=== PATIENT | female | born 1935 | race Caucasian/White ===

== ENCOUNTER 2017-12-09 01:56 | Observation (INO) | payer OTHER ==
--- NOTE | 2017-12-09 02:10 | EDPHY ---
H & P Time Seen by Provider: 12/09/17 02:03 HPI/ROS: Chief Complaint: Rectal bleeding HPI: 82-year-old woman whose had 2 episodes of rectal bleeding in the last 8 hr. Patient states at approximately 6 o'clock yesterday evening she had a bowel movement with some normal some loose stool and some bright red blood. Patient also has a pessary removed to make sure that that was not the source of bleeding inside it was clean. Patient states she with the bathroom urinated several more times without any blood. This morning she got up to go the bathroom and had another bowel movement with formed stool and some bright red blood. Denies any lightheadedness or weakness. Does have a history of upper GI bleed in the past and takes omeprazole. She has been taking her medications. No abdominal pain. No nausea vomiting or diarrhea. She has a history of glaucoma and poor eyesight. Does not believe that she has been having melena recently. Is currently without complaint. ROS: 10 point Review of Systems is negative except as noted in the HPI. PMH: Glaucoma, GERD Social History: No smoking, no alcohol, no recreational drug use Family History: non-contributory Physical Exam: Gen: Awake, Alert, No Distress HEENT: Nose: no rhinorrhea Eyes: PERRLA, EOMI Mouth: Moist mucosa Neck: Supple, no JVD Chest: nontender, lungs clear to auscultation Heart: S1, S2 normal, no murmur Abd: Soft, non-tender, no guarding Back: no CVA tenderness, no midline tenderness Ext: no edema, non-tender Skin: no rash Neuro: CN II-XII intact, Sensation grossly intact, Strength 5/5 in bilateral upper and lower extremities - Personal History Tetanus Vaccine Date: within 5 years - Medical/Surgical History Hx Asthma: No Hx Chronic Respiratory Disease: No Hx Diabetes: No Hx Cardiac Disease: No Hx Renal Disease: No Hx Cirrhosis: No Hx Alcoholism: No Hx HIV/AIDS: No Hx Splenectomy or Spleen Trauma: No 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 - Social History Smoking Status: Former smoker Constitutional: Initial Vital Signs Temperature (C) 36.8 C 12/09/17 01:58 Heart Rate 96 12/09/17 01:58 Respiratory Rate 18 12/09/17 01:58 Blood Pressure 111/99 H 12/09/17 01:58 O2 Sat (%) 96 12/09/17 01:58 O2 Delivery Mode Room Air Allergies/Adverse Reactions: alcohol [wine] Allergy (Mild, Verified 12/09/17 02:08) cocoa [chocolate] Allergy (Mild, Verified 12/09/17 02:08) lisinopril Allergy (Mild, Verified 12/09/17 02:08) tomato Allergy (Mild, Verified 12/09/17 02:08) Home Medications: Medication Instructions Recorded Aspirin [Aspirin 81mg (*)] 81 mg PO DAILY #30 tab 06/27/12 Omeprazole [Prilosec] 10 mg PO 10/11/12 Medical Decision Making ED Course/Re-evaluation: 82-year-old wound point of blood per rectum. She has had 2 more episodes in the emergency department. This is without stool. Patient's H&H are normal. She is not on blood thinners. Hemodynamics are fine. Given the increasing frequency the blood will discussed with the hospitalist for admission. I have discussed with Dr. Nair, GI. He will consult the patient. - Data Points Laboratory Results: Laboratory Results 12/09/17 02:15 12/09/17 02:15 12/09/17 12/09/17 02:15 02:15 WBC 7.16 10^3/uL 10^3/uL (3.80-9.50) RBC 4.42 10^6/uL 10^6/uL (4.18-5.33) Hgb 13.4 g/dL g/dL (12.6-16.3) Hct 40.7 % % (38.0-47.0) MCV 92.1 fL fL (81.5-99.8) MCH 30.3 pg pg (27.9-34.1) MCHC 32.9 g/dL g/dL (32.4-36.7) RDW 15.2 % % (11.5-15.2) Plt Count 342 10^3/uL 10^3/uL (150-400) MPV 10.6 fL fL (8.7-11.7) Neut % (Auto) 55.4 % % (39.3-74.2) Lymph % (Auto) 33.9 % % (15.0-45.0) [place] % (Auto) 8.7 % % (4.5-13.0) Eos % (Auto) 1.0 % % (0.6-7.6) Baso % (Auto) 0.7 % % (0.3-1.7) Nucleat RBC Rel Count 0.0 % % (0.0-0.2) Absolute Neuts (auto) 3.97 10^3/uL 10^3/uL (1.70-6.50) Absolute Lymphs (auto) 2.43 10^3/uL 10^3/uL (1.00-3.00) Absolute Monos (auto) 0.62 10^3/uL 10^3/uL (0.30-0.80) Absolute Eos (auto) 0.07 10^3/uL 10^3/uL (0.03-0.40) Absolute Basos (auto) 0.05 10^3/uL 10^3/uL (0.02-0.10) Absolute Nucleated RBC 0.00 10^3/uL 10^3/uL (0-0.01) Immature Gran % 0.3 % % (0.0-1.1) Immature Gran # 0.02 10^3/uL 10^3/uL (0.00-0.10) Sodium 145 mEq/L mEq/L (135-145) Potassium 4.0 mEq/L mEq/L (3.5-5.2) Chloride 108 mEq/L mEq/L (97-110) Carbon Dioxide 25 mEq/l mEq/l (22-31) Anion Gap 12 mEq/L mEq/L (8-16) BUN 18 mg/dL mg/dL (7-23) Creatinine 0.8 mg/dL mg/dL (0.6-1.0) Estimated GFR > 60 Glucose 93 mg/dL mg/dL (70-100) Calcium 9.9 mg/dL mg/dL (8.5-10.4) Departure - Departure Disposition: [facility] Inpatient Acute Clinical Impression: Lower GI bleeding Condition: Fair Referrals: Patient,NotPresent [Primary Care Provider] - As per Instructions
[2017-12-09 02:26] LABS: PLATELET COUNT 342 10^3/uL (150-400)
[2017-12-09] MEDS ORDERED: ONDANSETRON 4 MG/2 ML VIAL IVP PRN (03:20)
[2017-12-09] MEDS ORDERED: ACETAMINOPHEN 325 MG TAB PO PRN (03:20)
[2017-12-09] MEDS ORDERED: NS 1,000 ML IV SCH (03:30)
[2017-12-09] MEDS ORDERED: PEG 3350/NA SULF,BICARB,CL/KCL (GAVILYTE-G) 4000 ML BTL PO ONE ×2 (03:38→04:45)
[2017-12-09] MEDS ORDERED: hydrALAZINE 20 MG/ML VIAL IVP PRN (06:19)
--- NOTE | 2017-12-09 06:40 | GHP ---
[f rep st] HISTORY AND PHYSICAL DATE OF ADMISSION: 12/09/2017 SOURCE: Patient provides history, appears reliable. Her EMR was reviewed and case discussed with ED provider. CHIEF COMPLAINT: Bright red blood per rectum. HISTORY OF PRESENT ILLNESS: Very pleasant 82-year-old female who presents to the emergency departmen t today with complaints of rectal bleeding starting approximately 6 p.m. The patient reports that sh romeo had a bowel movement in the evening at home. She did not have any abdominal pain, distention, naus ea, vomiting, or recent history of diarrhea. Patient reports that she had bright red blood mixed in with stool. She subsequently had several additional episodes of just bright red leyla blood. The pa tient denies any shortness of breath, chest pain, palpitations, dizziness. She denies any abdominal pain or tenesmus. The patient has not had any nausea, vomiting. No fevers or chills. No sick conta cts. REVIEW OF SYSTEMS: Negative except as noted above. ALLERGIES: To alcohol, cocoa, lisinopril, tomato. HOME MEDICATIONS: Prilosec, aspirin, and multiple eye drops. 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 Hearing loss. PAST SURGICAL HISTORY: Significant for hysterectomy in 1970s, colonoscopy 10 years ago, and ocular s urgery. FAMILY HISTORY: Patient denies any history of GI bleeding, ulcers, or other related issues. SOCIAL HISTORY: Patient lives with her in an independent living facility in [facility] . She has adult children who are local and provide good support. Patient does not smoke, drink, or do drugs. She quit smoking in 1988, had a 30-year history. CODE STATUS: DNR DNI. The patient reports she has advanced directives in place. PHYSICAL EXAMINATION: VITAL SIGNS: Upon arrival to the ER, blood pressure 111/99, heart rate respir atory rate 18, O2 sat is 96% on room air with temperature 36.8. Current vital signs: Blood pressure 164/109, heart rate 84, respiratory rate 18, O2 saturation 94% on room air with temperature 36.8. G ENERAL: No acute distress. Very pleasant, frail, elderly female is sitting on the bedside commode i n no acute distress. HEAD: Normocephalic, atraumatic. EYES: Extraocular muscles are grossly intac t. Pupils equal, round decreased reactivity bilaterally and symmetric. No scleral icterus or conjun ctival injection. There is some scleral scarring bilaterally. ENT: Mucous membranes are moist. De ntition is intact neck. NECK: Supple. Trachea midline. CV: Regular rate and rhythm. No murmurs, rubs, or gallops appreciated. RESPIRATORY: Unlabored breathing. Lungs are clear to auscultation b ilaterally. No wheezes, rales, or rhonchi appreciated. ABDOMEN: Positive bowel sounds. Soft, nont deacon to palpation. No rebound, guarding, or masses appreciated. : No suprapubic tenderness to p alpation. No CVA tenderness. EXTREMITIES: No cyanosis, clubbing, or edema appreciated. Patient wit h 2+ pedal pulses. NEURO: Grossly nonfocal. No facial drooping. Patient awake, alert, and oriente d x4. PSYCH: The patient without any agitation. She is pleasant and cooperative. Thought process content and all questions are appropriate. LABORATORY STUDIES: WBC 7.16, H and H 13.4, 40.7, MCV is 92.1, platelet count 342, no bands. Sodium is 145, potassium 4.0, chloride 108, CO2 25, anion gap is 12, BUN 18, creatinine 0.8. GFR greater th an 60, glucose 93, calcium 9.9. ASSESSMENT AND PLAN: A very pleasant 82-year-old female with past medical history significant for ga stroesophageal reflux disease, glaucoma, and diverticulosis without history of diverticulitis who pre sents today with complaints of painless rectal bleeding. 1. Rectal bleeding. Differential diagnosis including diverticulosis versus arteriovenous malformati on versus less likely malignancy. The patient underwent a colonoscopy approximately 10 years ago wit h a history of diverticulosis. She has had multiple bright red bloody bowel movements prior to and a fter arrival to the emergency department. Dr. Nair with Gastroenterology was consulted from the [facility] department who requested that the patient undergo a bowel prep, which she has completed approxi mately half of a 4 L bottle. At this point, the patient's vital signs appear stable. Hemoglobin and hematocrit within normal limits. We will repeat if patient's vital signs should change before her e ndoscopic procedure. 2. History of gastroesophageal reflux disease. Continue proton pump inhibitor. 3. History of diverticulosis. Plan as above. 4. Glaucoma. Resume drops if patient should stay an additional day. 5. Elevated blood pressure without history of hypertension. Patient reports that she has white coat syndrome and blood pressures have declined slightly since arrival to the hospital floor. We will ma ke hydralazine available p.r.n. Her allergy list notes lisinopril previously, so I am uncertain exac tly her outpatient blood pressures if this is in fact a transient rise versus underlying essential hy pertension. 6. Fluid, electrolyte and nutrition: The patient is tolerating prep quite well. We will give a lit tle bit of IV fluid replacement. Diet will be nothing per mouth, except for prep. 7. Prophylaxis. Sequential compression devices, holding anticoagulation in setting of rectal bleedi ng. 8. Code status is do not resuscitate, do not intubate. 9. Disposition: The patient admitted to observation on the medical floor at this time pending furth er evaluation with colonoscopy and per gastroenterology recommendations. /[id number]/MODL
--- NOTE | 2017-12-09 11:11 | GCON ---
[f rep st] CONSULTATION GASTROENTEROLOGY INPATIENT CONSULTATION DATE OF CONSULTATION: 12/09/2017 I was kindly requested to see Ting by Dr. Ana Balderrama in consultation for a chief complaint of bright red blood per rectum. HISTORY OF PRESENT ILLNESS: She is an 82-year-old white female who began to have the at 6 p.m. last night. She had several episodes of bright red blood per rectum. She denies abdominal pain, nausea, vomiting, diarrhea. Ten years ago, she had a similar presentation at [facility]. She apparently has a history of diverticulosis. PAST MEDICAL HISTORY: 1. As above. 2. Glaucoma. 3. Heartburn. 4. Hearing loss. 5. Hysterectomy. 6. Otherwise, noncontributory. OUTPATIENT MEDICATIONS: Prilosec, aspirin. INPATIENT MEDICATIONS: IV fluids. ALLERGIES: Alcohol, cocoa, lisinopril and tomato. SOCIAL HISTORY: She is . Her 's name is Pranav. FAMILY HISTORY: Negative for similar bleeding. REVIEW OF SYSTEMS: Positive pertinent review of systems as per my HPI. Otherwise, a complete review of systems is negative. PHYSICAL EXAMINATION: CONSTITUTIONAL: Alert, nontoxic-appearing woman. VITAL SIGNS: Stable. SKIN: Warm, dry. EYES: Pupils equal, round, and reactive to light and accommodation. EAR, NOSE, MOUTH AND THROAT: Oropharynx without masses , moist mucosa. CARDIOVASCULAR: Normal S2, normal PMI. RESPIRATORY: Lungs clear to auscultation and percussion anteriorly. GASTROINTESTINAL: Abdomen is soft, nontender. NEUROLOGIC: Grossly nonfocal, with cranial nerves grossly intact. PSYCHIATRIC: Orientation, insight appropriate. MUSCULOSKELETAL: Strength grossly normal throughout, normal station. LABORATORIES: Laboratories include an initial hematocrit of 40.7%. Normal BMP. ASSESSMENT: Gastrointestinal bleeding. Almost certainly represents a lower gastrointestinal source. In turn, most likely a diverticular bleed. However, it has been 10 years since her last colonoscopy, so arteriovascular malformation , colon cancer, ischemia, etc., is possible. PLAN: 1. Urgent colonoscopy. 2. Further management depending on the above. Thank you for allowing me to help in the care of this patient. /[id number]/MODL MTDD
--- NOTE | 2017-12-09 11:47 | HOSPPROG ---
Hospitalist Progress Note Assessment/Plan: 82y female with c/o bleeding. #GIB colon today Dr hutchison prep done labs today #Hx glaucoma baseline #HTN mild follow #Dispo unclear colon today follow Subjective: Up in chair. Still bleeding. Objective: Vital Signs Temp Pulse Resp BP Pulse Ox 37.0 C 88 16 149/76 H 99 12/09/17 11:13 12/09/17 11:13 12/09/17 11:13 12/09/17 11:13 12/09/17 11:13 12/08/17 12/09/17 12/10/17 05:59 05:59 05:59 Intake Total 500 Balance 500 - Physical Exam Constitutional: appears nourished, chronically ill appearing Eyes: anicteric sclera, No PERRL Ears, Nose, Mouth, Throat: moist mucous membranes, hard of hearing Cardiovascular: No JVD, No edema Respiratory: no respiratory distress, reduced air movement Gastrointestinal: No tenderness, No ascites Skin: warm, normal color Musculoskeletal: no joint effusions, generalized weakness Neurologic: AAOx3 Psychiatric: not encephalopathic, anxious ICD10 Worksheet Patient Problems: Problems Problem Status Onset Hyperlipidemia Active Benign hypertension Active Lower GI bleeding Acute
[2017-12-09] MEDS ORDERED: MIDAZOLAM 2 MG/2 ML VIAL ONE (13:30)
[2017-12-09] MEDS ORDERED: fentaNYL 100 MCG/2 ML INJ ONE (13:30)
[2017-12-09] MEDS ORDERED: EPINEPHrine 1 MG/ML INJ ONE (13:44)
[2017-12-09] MEDS ORDERED: LIDOCAINE 1% *Not for Epidural 20 ML MDV ONE (13:45)
--- NOTE | 2017-12-09 14:17 | PDPROPOC ---
Sedation Plan of Care ASA Classification: ASA 2 Planned drugs: fentanyl, midazolam Mallampati Score: Class 1 Mallampati Reference Image: Patient passed 3-3-2 rule?: Yes
[2017-12-09] MEDS ORDERED: fentaNYL 100 MCG/2 ML INJ IVP ONE (14:52)
[2017-12-09] MEDS ORDERED: MIDAZOLAM 2 MG/2 ML VIAL IVP ONE (14:53)
--- NOTE | 2017-12-09 14:59 | ASMTCMCOM ---
CM Note CM Note Notes: Reviewed chart and discussed w/hospitalist. No dc needs anticipated at this time but CM available if needs come up. Date Signed: 12/09/2017 02:59 PM Electronically Signed By:Daphne Mcelroy RN
--- NOTE | 2017-12-09 15:10 | GIREPORT ---
[facility] - Endoscopy Department Patient Name: Ting Lacey Procedure Date: 12/09/2017 1:40 PM Patient Type: Inpatient Attending MD/ ER Physician: Saeed Nair MD Procedure: Colonoscopy Indications: Note dictated, consult appreciated. Hematochezia. Providers: Saeed Nair MD Medicines: Fentanyl 100 micrograms IV, Midazolam 2.5 mg IV Complications: No immediate complications. Description of Procedure: After obtaining informed consent, the scope was passed under direct vis ion. Throughout the procedure, the patient's blood pressure, pulse, and oxyg en saturations were monitored continuously. The Colonoscope was introduced through the anus and advanced to the terminal ileum. The terminal ileum was photographed. The quality of the bowel preparation was good. Findings: The terminal ileum appeared normal. Multiple diverticula were found from 15 to 50 cm proximal to the anus. Some recent red blood-tinged prep seen, but no further active bleeding. Estimated Blood Loss: none. Post Op Diagnosis: - Suspect diverticular bleed, now resolved. Recommendation: - feed - buffcap IV - if Hcts stable tomorrow, as I suspect, o.k. to d/c home from a G.I. perspective. I will sign off. As an outpt., recommend iron replacement therapy x 8 w sioux. Else, please call if we can be of further help [phone]). Thank you for allowing me to help in the management of this patient. Attending Participation: I personally performed the entire procedure. Joanie Tipton MD Saeed Nair MD 12/09/2017 3:10:23 PM This report has been signed electronicallyPeter MD Joanie Number of Addenda: 0 Note Initiated On: 12/09/2017 1:40 PM Total Procedure Duration Time 0 hours 23 minutes 19 seconds [email or web address]
[2017-12-09] MEDS ORDERED: LATANOPROST 0.005% 2.5 ML OPHT DROPS LEFTEYE SCH (21:00)
[2017-12-10 07:36] VITALS: BP 151/70
--- NOTE | 2017-12-10 12:05 | GDS ---
[f rep st] DISCHARGE SUMMARY DISCHARGE DIAGNOSES: 1. Gastrointestinal bleed. 2. Acute blood loss anemia. 3. History of glaucoma. 4. Hypertension. CONSULTATIONS: Saeed Nair MD FACG of gastroenterology. STUDIES AND PROCEDURES DONE: Colonoscopy. PHYSICAL EXAM: GENERAL: The patient is alert. VITAL SIGNS: Afebrile at 37, pulse is 105, respirat ory rate is 18, blood pressure is 151/70. She is saturating 93% on room air. I have seen and evalua chris the patient on the day of discharge. HOSPITAL COURSE: Mrs. Lacey is an 82-year-old female who presented to the emergency room with compl aints of rectal bleeding. She was evaluated and diagnosed with: 1. Gastrointestinal bleed. During this hospitalization, she did receive a colon prep. She was cons ulted on by Dr. Nair of Gastroenterology. A colonoscopy was performed, noting likely resolved divert icular bleed. Her bleeding has subsided. She has not had any further episodes and is stable. 2. Acute blood loss anemia. This is in the setting of gastrointestinal bleed that has resolved. Th is is stable. 3. History of glaucoma. She is at her baseline. 4. Hypertension. This is mild. She will follow with her primary care physician. DISPOSITION: Mrs. Lacey will be discharged home independently with her . There are no pendi ng studies. DISCHARGE MEDICATIONS: Please refer to EMR form. The patient has been initiated on iron replacement at the time of disposition. FOLLOW UP: Followup will be with Dr. Saeed Nair as well as the patient's primary care physician. /[id number]/MODL
--- NOTE | 2017-12-10 17:44 | ASDISCHSUM ---
Discharge Information Plan Status:Home with No Needs Medically Cleared to Leave:12/10/2017 Discharge Date:12/10/2017 10:40 AM CM D/C Disposition:Home, Routine, Self-Care ADT D/C Disposition:Home, Routine, Self-Care Projected Discharge Date:12/10/2017 12:00 AM Transportation at D/C: Discharge Delay Reason: Follow-Up Date:12/10/2017 12:00 AM Discharge Slot:1 - 8:01 am - 12:00 noon Final Diagnosis:GI Bleed Placement Information Patient Contact Information Contact Name:CASANDRA Relationship: [facility] [address] [facility] [address] Work Phone: [facility]:[place] Alternate Phone: [facility]/Zip Code:[place] [address] Email: Financial Information Financial Class:Medicare Primary Plan Desc:MEDICARE OUTPATIENT Primary Plan Number:[id number] Secondary Plan Desc: Secondary Plan Number: Assessment Information BC CM Progress Note CM Note CM Note Notes: Reviewed chart and discussed w/hospitalist. No dc needs anticipated at this time but CM available if needs come up. Date Signed: 12/09/2017 02:59 PM Electronically Signed By:Daphne Mcelroy RN Intervention Information
== END 2017-12-10 10:40 | disposition home or self-care (01) ==
LOC: EDUNIT# → F3N 04:54
PROVIDERS: ADMIT Family Medicine; ATTEND Internal Medicine
PROC: 0DJD8ZZ Inspection of Lower Intestinal Tract, Via Natural or Artificial Opening Endoscopic (ICD-10-PCS; principal; 2017-12-09 14:00)
DX: K57.32 Diverticulitis of large intestine without perforation or abscess without bleeding (principal); K21.9 Gastro-esophageal reflux disease without esophagitis; Z87.891 Personal history of nicotine dependence; H54.8 Legal blindness, as defined in USA; H40.9 Unspecified glaucoma
CPT/HCPCS: 45378; 97165; 99285; G0378; G8987; G8988; J0171; J0360; J2250; J3010

== ENCOUNTER 2018-06-26 14:27 | Emergency (ER) | payer OTHER ==
--- NOTE | 2018-06-26 14:57 | EDPHY ---
H & P Stated Complaint: abd pain Time Seen by Provider: 06/26/18 14:56 HPI/ROS: HPI: This is an 83-year-old female who presents with Chief Complaint: Abdominal pain, constipation, bloating Location: Abdomen Quality: Bloating, no bowel movement Duration: 36 hr Signs and Symptoms: no fever, no nausea, no vomiting, no hematemesis, no blood in stool, no diarrhea, no back pain, no urinary symptoms, no vaginal bleeding/ discharge, no indigestion, no chest pain, no shortness of breath Timing: Gradual onset Severity: Mild Context: Patient is legally blind, presents accompanied by her with no bowel movement last 36 hr accompanied by abdominal bloating. Takes iron supplementation. Patient reports that she still eating 3 meals a day and drinking fluids without difficulty. Denies any nausea, vomiting, diarrhea. She reports that the abdominal bloating is uncomfortable. History hysterectomy. No prior history of constipation, obstruction or fecal impaction. + passing flatus. Modifying Factors: She has tried no suppositories [id number] stool softeners Comment: ROS: A comprehensive 10 system review of systems is otherwise negative aside from elements mentioned in the history of present illness. MEDICAL/SURGICAL/SOCIAL HISTORY: Medical/history: legally blind R>L, GERD, hysterectomy, urinary pessary, GI bleed Social history: Former smoker. . Family history noncontributory. CONSTITUTIONAL: Pleasant elderly white female, awake and alert, no obvious distress HEENT: Atraumatic and normocephalic, PERRL, EOMI. Nares patent; no rhinorrhea; no nasal mucosal edema. Tympanic membranes clear. Oropharynx clear, no exudate and moist pink mucosa. Airway patent. No lymphadenopathy. No meningismus. Cardiovascular: Normal S1/S2, regular rate, regular rhythm, without murmur rub or gallop. PULMONARY/CHEST: Symmetrical and nontender. Clear to auscultation bilaterally. Good air movement. No accessory muscle usage. ABDOMEN: Soft, mildly bloated, nontender, no rebound, no guarding, no peritoneal signs, no masses or organomegaly. No CVAT. Hyperactive bowel sounds heard x4 quadrants EXTREMITIES: 2/2 pulses, strength 5/5, no deformities, no clubbing, no cyanosis or edema. NEUROLOGICAL: no focal neuro deficits. GCS 15. SKIN: Warm and dry, no erythema. no rash. Good capillary refill. Source: Patient Exam Limitations: No limitations - Personal History Current Tetanus/Diphtheria Vaccine: Unsure Current Tetanus Diphtheria and Acellular Pertussis (TDAP): Unsure Tetanus Vaccine Date: within 5 years - Medical/Surgical History Hx Asthma: No Hx Chronic Respiratory Disease: No Hx Diabetes: No Hx Cardiac Disease: No Hx Renal Disease: No Hx Cirrhosis: No Hx Alcoholism: No Hx HIV/AIDS: No Hx Splenectomy or Spleen Trauma: No Other PMH: legally blind R>L, GERD, hysterectomy, urinary pessary, GI bleed - Social History Smoking Status: Former smoker Constitutional: Initial Vital Signs Temperature (C) 36.7 C 06/26/18 14:35 Heart Rate 93 06/26/18 14:35 Respiratory Rate 16 06/26/18 14:35 Blood Pressure 143/80 H 06/26/18 14:35 O2 Sat (%) 97 06/26/18 14:35 O2 Delivery Mode Room Air Allergies/Adverse Reactions: alcohol [wine] Allergy (Mild, Verified 12/09/17 02:08) cocoa [chocolate] Allergy (Mild, Verified 12/09/17 02:08) lisinopril Allergy (Mild, Verified 12/09/17 02:08) tomato Allergy (Mild, Verified 12/09/17 02:08) Home Medications: Medication Instructions Recorded Omeprazole [Prilosec] 10 mg PO DAILY 10/11/12 Aspirin [Aspirin 81mg (*)] 81 mg PO MWF 12/09/17 Latanoprost 0.005% [Xalatan 0.005% 1 drops LEFTEYE HS 12/09/17 (*)] Acetaminophen [Tylenol 325mg (*)] 650 mg PO Q4HRS PRN tab 12/10/17 Ferrous Sulfate [Ferrous Sulf 325 325 mg PO DAILY #30 tab 12/10/17 MG (*)] Medical Decision Making - Diagnostics Imaging Results: Imaging Impressions Abdomen X-Ray 06/26/18 15:08 Impression: Nonspecific pattern. ED Course/Re-evaluation: Constipation is for the last 36 hr with no significant abdominal pain, nausea, vomiting and drinking fluids and eating without difficulty. Will start with abdominal x-ray to evaluate stool burden and obstruction. Offered patient extensive workup and she politely decline reports"that is not necessary honey." Abdominal x-ray my read shows nonobstructive bowel pattern. Given Dulcolax suppository and 150 mL of magnesium citrate. Abdomen remains soft and nontender. Doubt surgical process. This patient was seen under the supervision of my secondary supervising physician. I evaluated care for this patient independently. Discussed this patient with Dr. Lujan. Differential Diagnosis: Differential diagnosis includes but is not limited to constipation, obstipation , ileus, bowel obstruction. - Data Points Medications Given: Discontinued Medications Magnesium Citrate (Magnesium Citrate) 150 ml PO ONCE ONE Stop: 06/26/18 15:53 Last Admin: 06/26/18 16:20 Dose: 150 ml Departure - Departure Disposition: Home, Routine, Self-Care Clinical Impression: Constipation Qualifiers: Constipation type: slow transit constipation Qualified Code(s): K59.01 - Slow transit constipation Condition: Good Instructions: Polyethylene Glycol 3350 (By mouth), Constipation (ED) Additional Instructions: Consume a minimum of 8-10 glasses of water or electrolyte fluid replacement drinks that include Gatorade, Powerade, Pedialyte. Eat a bland diet for the next 48 hours and then slowly advance as tolerated. Take MiraLax daily as needed for constipation. Take Gas-X as needed for abdominal bloating. If symptoms do not improve and you do not having a bowel movement in 3 days, follow-up with primary care provider. Return to the ER immediately if you experience new, continued or worsening abdominal pain, fevers/chills, inability to tolerate oral intake, new pain, or any other symptoms that concern you. Referrals: Mirza Hinton MD [Primary Care Provider] - 3-4 days, if not improved
[2018-06-26] MEDS ORDERED: MAGNESIUM CITRATE 300 ML BOTTLE PO ONE (15:52)
[2018-06-26 16:44] VITALS: BP 177/91
== END 2018-06-26 16:46 | disposition home or self-care (01) ==
DX: K59.01 Slow transit constipation (principal); R10.9 Unspecified abdominal pain; R14.0 Abdominal distension (gaseous); K21.9 Gastro-esophageal reflux disease without esophagitis; Z87.891 Personal history of nicotine dependence; Z87.19 Personal history of other diseases of the digestive system